=== PATIENT | male | born 1990 | race Caucasian/White ===

== ENCOUNTER 2016-09-17 15:54 | Emergency (ER) | payer BC ==
[~2016-09-17] VITALS: Ht 177.8 cm; Wt 80.7 kg
[2016-09-17 16:02] VITALS: TEMP 37.1; Ht 177.8 cm; Wt 80.7 kg
[2016-09-17] MEDS ORDERED: IBUP-1050 PO (16:26)
--- NOTE | 2016-09-17 16:52 | DIAGNOSTIC IMAGING REPORT ---
ULTRASOUND TESTES AND SCROTUM CLINICAL HISTORY: Right testicular pain. COMPARISON STUDY: No priors. TECHNIQUE: Real-time, grayscale, and color Doppler sonography of the testes and scrotum is performed. Images are reviewed in the transverse and longitudinal planes. FINDINGS: The testes are normal in size and homogeneous in echotexture. The right testis measures 4.9 x 2.6 x 2.9 cm and the left testis measures 5.1 x 2.6 x 2.7 cm. No intratesticular mass is seen. Testicular blood flow is normal and symmetric. Normal Doppler waveforms are identified in both testes. The epididymal heads are normal in appearance. The right epididymal head measures 1.0 cm in length and the left epididymal head measures 1.0 cm in length. No varicocele or hydrocele is seen. IMPRESSION: Unremarkable sonographic assessment of the testes and scrotum. Electronically signed by: Carmelo Benavides M.D. 09/17/2016 4:51 PM Dictated Date/Time: 09/17/2016 4:50 PM
[2016-09-17] MEDS ORDERED: CEFTRIAXONE SOD 350MG/ML 1 GM VIAL IM ONE (17:15)
[2016-09-17] MEDS ORDERED: DOXY100C2 PO (17:21)
[2016-09-17 17:25] VITALS: BP 142/77; PULSE 67; O2SAT 97
[2016-09-17 17:29] LABS: URINE APPEARANCE CLEAR (CLEAR); URINE BILIRUBIN NEG (NEG); URINE COLOR YELLOW; URINE NITRITE NEG (NEG); UROBILINOGEN NEG (NEG)
[2016-09-17 17:37] LABS: MANUAL MICROSCOPIC REQUIRED? NO; REVIEW REQ? NO
--- NOTE | 2016-09-17 20:49 | EMERGENCY ROOM VISIT NOTE ---
History Report prepared by Tamar: Gardenia Bishop Under the Supervision of: Dr. Osbaldo Jackson M.D. First contact with patient: 16:05 Chief Complaint: TESTICULAR PAIN Stated Complaint: SUSPECTED TESTICULAR TORTION History of Present Illness The patient is a 25 year old male who presents to the Emergency Room with complaints of constant right testicular pain for the past 5 hours. He rates his pain as a 6/10 in severity. His pain radiates into his lower abdomen. He states that when he went to the bathroom earlier today it seemed that his right testicle was higher than the left. The patient denies any recent trauma or injury to his testicles. He denies redness or swelling of his right testicle. The patient denies penile discharge, urinary symptoms, fever, and any personal history of STIs. He denies any sexual activity since last month. He states that he had protected sex at that time, but he has had unprotected sex in the past. Source of History: patient Onset: 5 hours ago Position: other (right testicle) Symptom Intensity: 6/10 Quality: other (radiating) Timing: constant Associated Symptoms: + abdominal pain, No fevers, No urinary symptoms Note: The patient denies any recent trauma or injury to his testicles. He denies redness or swelling of his right testicle. The patient denies penile discharge and any personal history of STIs. Review of Systems See HPI for pertinent positives & negatives. A total of 10 systems reviewed and were otherwise negative. Past Medical & Surgical Medical Problems: (1) Asthma Surgical Problems: (1) [place] teeth extracted Family History Cancer Heart disease Hypertension Kidney disease Kidney stones Lung disease Social History Smoking Status: Never Smoker Smokeless Tobacco Use: No Alcohol Use: none Marital Status: single Housing Status: lives with roommate Occupation Status: employed Current/Historical Medications Scheduled Doxycycline Hyclate (Vibramycin), 100 MG PO BID Scheduled PRN Ibuprofen (Advil), 200-600 MG PO Q4H PRN for Pain Allergies Coded Allergies: Sulfa Antibiotics (Verified Allergy, Unknown, Family Allergy, 09/17/16) Physical Exam Vital Signs Date Time Temp Pulse Resp B/P Pulse Ox O2 Delivery O2 Flow Rate FiO2 09/17/16 17:25 67 18 142/77 97 Room Air 09/17/16 16:02 37.1 117 18 144/87 96 Room Air Physical Exam Constitutional: Vital signs reviewed. Eyes: Pupils are equal round reactive to light. Conjunctiva are noninjected. ENT: Pharynx is clear without erythema or exudate. Mucous membranes are moist. Neck supple without meningeal signs. Respiratory: Clear to auscultation bilaterally. Breath sounds are equal bilaterally. Cardiovascular: Regular rate and rhythm. No rubs or gallops. GI: Soft, nondistended and nontender. Bowel sounds are present. : No inguinal hernia, bilateral cremasteric reflexes intact, no testicular tenderness scrotal swelling or edema, no uretal discharge. Right epididymal tenderness. Musculoskeletal: No peripheral edema. Integumentary: No cyanosis. Neurological: The patient is awake and alert. No focal deficits. Psychiatric: Normal affect. Medical Decision & Procedures ER Provider Diagnostic Interpretation: Radiology results as stated below per my review and the radiologist's interpretation: ULTRASOUND TESTES AND SCROTUM CLINICAL HISTORY: Right testicular pain. COMPARISON STUDY: No priors. TECHNIQUE: Real-time, grayscale, and color Doppler sonography of the testes and scrotum is performed. Images are reviewed in the transverse and longitudinal planes. FINDINGS: The testes are normal in size and homogeneous in echotexture. The right testis measures 4.9 x 2.6 x 2.9 cm and the left testis measures 5.1 x 2.6 x 2.7 cm. No intratesticular mass is seen. Testicular blood flow is normal and symmetric. Normal Doppler waveforms are identified in both testes. The epididymal heads are normal in appearance. The right epididymal head measures 1.0 cm in length and the left epididymal head measures 1.0 cm in length. No varicocele or hydrocele is seen. IMPRESSION: Unremarkable sonographic assessment of the testes and scrotum. Electronically signed by: Carmelo Benavides M.D. 09/17/2016 4:51 PM Dictated Date/Time: 09/17/2016 4:50 PM Laboratory Results Test 09/17/16 16:13 09/17/16 17:14 Urine Color YELLOW Urine Appearance CLEAR (CLEAR) Urine pH 7.0 (4.5-7.5) Urine Specific [place] 1.020 (1.000-1.030) Urine Protein NEG (NEG) Urine Glucose (UA) NEG (NEG) Urine Ketones NEG (NEG) Urine Occult Blood NEG (NEG) Urine Nitrite NEG (NEG) Urine Bilirubin NEG (NEG) Urine Urobilinogen NEG (NEG) Urine Leukocyte Esterase NEG (NEG) Laboratory results as reviewed by me. Medications Administered Medications (Trade) Dose Ordered Sig/Tyra Route Start Time Stop Time Status Last Admin Dose Admin Ceftriaxone Sodium (Rocephin Im) 500 mg NOW ONCE IM 09/17/16 17:15 09/17/16 17:16 DC 09/17/16 17:28 500 MG ED Course 1605: The patient was evaluated in room B5. A complete history and physical exam was performed. 1715: Rocephin 500 mg IM 1730: I reassessed the patient at this time. He is feeling better and resting comfortably. I discussed the results and treatment plan with the patient. I answered all pertaining questions that he had. He expressed understanding and verbalized agreement. The patient will be discharged home. Medical Decision This is a 25-year-old male who presents with right testicular pain. Differential diagnosis includes epididymitis, orchitis, testicular torsion, testicular mass, inguinal hernia, varicocele STI. I did perform a limited focused review of portions of the patient's old chart on the electronic medical record. The patient has had no recent pertinent visits to this hospital. I did evaluate the patient as noted above. Patient is presenting with right- sided testicular pain. He does have tenderness over the right epididymis. No testicular tenderness or signs of torsion. I did order and personally review the patient's urinalysis as described above. I did obtain a urethral swab for GC and chlamydia which are pending. I did order a ultrasound of the scrotum. I did review the images myself as well as the radiology report as described above. There is no signs of torsion or acute abnormality. I did discuss the test results with the patient. At this time his symptoms are most consistent with epididymitis. I did recommend close follow up with his doctor. He was given Rocephin IM and discharged with a prescription for doxycycline. Impression Primary Impression: Epididymitis Scribe Attestation The scribe's documentation has been prepared under my direct and personally reviewed by me in its entirety. I confirm that the note above accurately reflects all work, treatment, procedures, and medical decision making performed by me. Departure Information Dispostion Home / Self-Care Prescriptions Doxycycline Hyclate (VIBRAMYCIN) 100 Mg Cap 100 MG PO BID for 10 Days, #20 CAP Prov: Osbaldo Jackson M.D. 09/17/16 Referrals No Doctor, Assigned (PCP) Forms HOME CARE DOCUMENTATION FORM, IMPORTANT VISIT INFORMATION, WORK / SCHOOL INSTRUCTIONS Patient Instructions Epididymitis Dc, My [facility] Additional Instructions You have been examined and treated today on an emergency basis only. This is not a substitute for, or an effort to provide, complete comprehensive medical care. It is impossible to recognize and treat all injuries or illnesses in a single emergency department visit. It is therefore important that you follow up closely with your physician. Call as soon as possible for an appointment. Return for worsening symptoms or if you develop fever, vomiting, testicular swelling or redness or any other concerning symptoms.
[2016-09-19 21:56] LABS: CHLAMYDIA TRACH RNA*** NOT DETECTED (NOT DETECTED); GC (NEIS GONORRHOEAE)RNA** NOT DETECTED (NOT DETECTED)
== END 2016-09-17 17:55 | disposition home or self-care (01) ==
LOC: C.EDB 15:56
DX: N45.1 Epididymitis (principal); J45.909 Unspecified asthma, uncomplicated